=== PATIENT | female | born 1940 | race Caucasian/White ===

== ENCOUNTER 2017-10-26 19:55 | Inpatient (IN) | payer MEDICARE, OTHER ==
[2017-10-26] VITALS (86 sets, daily range): O2SAT 50–100
[~2017-10-26] VITALS: Ht 157.5 cm; Wt 98.8 kg
[~2017-10-26 19:55] MED LIST: ZYLOPRIM 300MG300 MG PO
[2017-10-26 21:24] LABS: BASO % 0.4 % (0.0-2.0); GRAN # 4.9 (1.4-6.5); GRAN % 70.4 % (42.2-75.2); HEMOGLOBIN 12.7 g/dl (12.5-16.0); LYMPH # 0.9 (1.2-3.4); LYMPH % 12.9 % (20.0-51.0); MEAN CELL VOLUME 91 fl (80.0-100.0); MEAN CORPUSCULAR HEMOGLOBIN 32 pg (27.0-31.0); MEAN CORPUSCULAR HGB CONC 35 g/dl (33.0-37.0); MEAN PLATELET VOLUME 10.5 fl (7.4-10.4); MONO # 1.1 (0.1-0.6); PLATELET COUNT 319 K/mm3 (130-400); RED BLOOD COUNT 4.03 M/mm3 (4.10-5.30); REDCELL DISTRIBUTION WIDTH-CV 15.9 % (11.5-14.5)
[2017-10-26 21:28] LABS: HEMATOCRIT 36.6 % (37.0-47.0); INR 1.1 (0.8-3.0); PROTHROMBIN TIME 12.4 SECONDS (9.7-12.8)
[2017-10-26 21:31] LABS: PARTIAL THROMBOPLASTIN TIME 32.9 SECONDS (26.0-37.0)
[2017-10-26 21:36] LABS: ALBUMIN 3.9 gm/dL (3.5-5.0); BILIRUBIN,TOTAL 0.6 mg/dL (0.0-1.0); CALCIUM 10.4 mg/dL (8.4-10.2); CHOLESTEROL RISK RATIO 2.2; CREATININE, serum 1.91 mg/dL (0.52-1.25); MAGNESIUM 2.6 mg/dL (1.6-2.3); POTASSIUM 4.2 mmol/L (3.4-5.0); TOTAL PROTEIN 7.7 gm/dL (6.4-8.2)
[2017-10-26 21:49] LABS: TROPONIN-I 0.339 ng/mL (0.000-0.034)
[2017-10-26] MEDS ORDERED: NORCO 325 MG-51 TAB PO (23:54)
[2017-10-26] MEDS ORDERED: ALBUTEROL0.83 MG/ML IH (23:55)
[2017-10-26] MEDS ORDERED: RT SPIRIVA18 MCG IH (23:56)
[2017-10-26] MEDS ORDERED: RT ADVAIR 228 DISKUS IH (23:56)
[2017-10-26] MEDS ORDERED: PRAVACHOL 20MG20 MG PO (23:57)
[2017-10-26] MEDS ORDERED: COLCRYS0.6 MG PO (23:58)
[2017-10-26] MEDS ORDERED: PROAIR HFA0.09 MG/AC IH (23:59)
[2017-10-27] VITALS (467 sets, daily range): BP systolic 110–143; BP diastolic 49–96; PULSE 68–86; TEMP 97.5–98.6; O2SAT 71–100
[2017-10-27] MEDS ORDERED: COZAAR100 MG PO (00:01)
[2017-10-27] MEDS ORDERED: LOPRESSOR 550 MG/TAB PO (00:01)
[2017-10-27] MEDS ORDERED: LASIX 40MG TABL40 MG PO (00:02)
[2017-10-27] MEDS ORDERED: PLAVIX 75MG TAB75 MG PO (00:03)
[2017-10-27] MEDS ORDERED: XALATAN EYE DROPS OD (00:06)
[2017-10-27] MEDS ORDERED: TYLENOL 500MG500 MG PO (00:07)
[2017-10-27] MEDS ORDERED: MASON NATURAL2000 IU PO ×2 (00:09→00:10)
[2017-10-27] MEDS ORDERED: MAGNESIUM500 MG PO (00:10)
[2017-10-27] MEDS ORDERED: ASPIRIN 81M81 MG/TA2 PO (00:11)
[2017-10-27 06:12] LABS: BASO % 0.3 % (0.0-2.0); GRAN # 3.8 (1.4-6.5); GRAN % 66.1 % (42.2-75.2); HEMOGLOBIN 11.7 g/dl (12.5-16.0); LYMPH # 0.9 (1.2-3.4); LYMPH % 15.6 % (20.0-51.0); MEAN CELL VOLUME 90 fl (80.0-100.0); MEAN CORPUSCULAR HEMOGLOBIN 31 pg (27.0-31.0); MEAN CORPUSCULAR HGB CONC 35 g/dl (33.0-37.0); MEAN PLATELET VOLUME 10.3 fl (7.4-10.4); MONO % 17.8 % (1.7-9.3); PLATELET COUNT 313 K/mm3 (130-400); RED BLOOD COUNT 3.73 M/mm3 (4.10-5.30); REDCELL DISTRIBUTION WIDTH-CV 15.6 % (11.5-14.5)
[2017-10-27 06:14] LABS: HEMATOCRIT 33.4 % (37.0-47.0)
[2017-10-27 06:29] LABS: CALCIUM 10.2 mg/dL (8.4-10.2); CREATININE, serum 1.66 mg/dL (0.52-1.25); POTASSIUM 4.3 mmol/L (3.4-5.0)
[2017-10-27 06:43] LABS: TROPONIN-I 0.282 ng/mL (0.000-0.034)
[2017-10-28 04:48] VITALS: BP 124/77; PULSE 71; TEMP 98.9
[2017-10-28 06:46] LABS: HEMOGLOBIN 12.6 g/dl (12.5-16.0); MEAN CELL VOLUME 92 fl (80.0-100.0); MEAN CORPUSCULAR HEMOGLOBIN 32 pg (27.0-31.0); MEAN CORPUSCULAR HGB CONC 34 g/dl (33.0-37.0); MEAN PLATELET VOLUME 10.1 fl (7.4-10.4); PLATELET COUNT 364 K/mm3 (130-400); REDCELL DISTRIBUTION WIDTH-CV 15.7 % (11.5-14.5)
[2017-10-28 07:02] LABS: HEMATOCRIT 36.6 % (37.0-47.0)
[2017-10-28 07:03] LABS: ALBUMIN 3.6 gm/dL (3.5-5.0); BILIRUBIN,TOTAL 0.8 mg/dL (0.0-1.0); CALCIUM 10.3 mg/dL (8.4-10.2); CREATININE, serum 1.62 mg/dL (0.52-1.25); POTASSIUM 4.6 mmol/L (3.4-5.0)
[2017-10-28 09:11] LABS: BAND 1 % (0-10); BASOPHIL 1 % (0-2); LYMPHOCYTE 30 % (20.0-51.0); NEUTROPHILS 65 % (42.0-75.2)
[2017-10-28 09:12] LABS: ANISOCYTOSIS 1+; OVALOCYTES 1+; PLATELET ESTIMATE INCREASED (NORMAL); TARGET CELLS 2+
[2017-10-28 09:44] VITALS: BP 144/65; PULSE 65; TEMP 97.9
[2017-10-28 11:35] VITALS: BP 122/53; PULSE 75; TEMP 98.7
[2017-10-28 12:26] VITALS: BP 122/53; PULSE 75
[2017-10-28 16:58] VITALS: BP 137/36; PULSE 95; TEMP 98.2
[2017-10-28 20:17] VITALS: BP 128/64; PULSE 62; TEMP 98.4
[2017-10-29 01:17] VITALS: BP 98/79; PULSE 89; TEMP 97.4
[2017-10-29 03:41] VITALS: BP 148/52; PULSE 84; TEMP 97.4
[2017-10-29 07:52] VITALS: BP 127/55; PULSE 81; TEMP 98
[2017-10-29 09:13] VITALS: BP 131/54; PULSE 80
[2017-10-29 09:15] VITALS: BP 154/49; PULSE 79
[2017-10-29] MEDS ORDERED: COZAAR 50MG50 MG/TAB PO (11:07)
[2017-10-29] MEDS ORDERED: NITROSTAT0.4 MG/TAB SL (11:08)
[2017-10-29 12:02] VITALS: BP 108/58; PULSE 83; TEMP 98.4
[2017-10-29 12:29] LABS: BASO % 0.5 % (0.0-2.0); GRAN # 3.2 (1.4-6.5); GRAN % 56.5 % (42.2-75.2); HEMATOCRIT 41.5 % (37.0-47.0); HEMOGLOBIN 14.4 g/dl (12.5-16.0); LYMPH # 1.2 (1.2-3.4); LYMPH % 21.1 % (20.0-51.0); MEAN CELL VOLUME 89 fl (80.0-100.0); MEAN CORPUSCULAR HEMOGLOBIN 31 pg (27.0-31.0); MEAN CORPUSCULAR HGB CONC 35 g/dl (33.0-37.0); MEAN PLATELET VOLUME 10.1 fl (7.4-10.4); MONO # 1.2 (0.1-0.6); MONO % 21.5 % (1.7-9.3); PLATELET COUNT 432 K/mm3 (130-400); RED BLOOD COUNT 4.64 M/mm3 (4.10-5.30); REDCELL DISTRIBUTION WIDTH-CV 15.9 % (11.5-14.5)
[2017-10-29 12:37] LABS: CALCIUM 11.2 mg/dL (8.4-10.2); CREATININE, serum 1.51 mg/dL (0.52-1.25)
[2017-10-29] MEDS ORDERED: TESSALON P100 MG/CAP PO (13:52)
== END 2017-10-29 18:12 | disposition home health service (06) | DRG 280 ==
LOC: IMCU 19:55 → ICU 20:44 → MEDICAL 10-27 17:33 → ICU 10-27 17:34 → MEDICAL 10-27 19:38
PROVIDERS: Family Medicine; Nurse Practitioner Family; Physician Assistant
DX: I13.0 Hypertensive heart and chronic kidney disease with heart failure and stage 1 through stage 4 chronic kidney disease, or unspecified chronic kidney disease (principal); I50.33 Acute on chronic diastolic (congestive) heart failure; I21.4 Non-ST elevation (NSTEMI) myocardial infarction; Z68.41 Body mass index [BMI] 40.0-44.9, adult; N18.9 Chronic kidney disease, unspecified; J44.9 Chronic obstructive pulmonary disease, unspecified; E66.9 Obesity, unspecified; I27.22 Pulmonary hypertension due to left heart disease; I87.2 Venous insufficiency (chronic) (peripheral); Z87.891 Personal history of nicotine dependence; I08.3 Combined rheumatic disorders of mitral, aortic and tricuspid valves; E83.52 Hypercalcemia
CPT/HCPCS: 99231-AI; 99239; A9502; G0378; G0379; J1650; J2785

== ENCOUNTER 2017-12-10 09:06 | Day surgery (SDC) | payer MEDICARE, OTHER ==
[~2017-12-10] VITALS: Ht 157.5 cm; Wt 95.2 kg
[2017-12-10] VITALS (10 sets, daily range): BP systolic 132–187; BP diastolic 68–85; PULSE 69–80; TEMP 97.6–97.9
[~2017-12-10 09:06] MED LIST changes: +ALBUTEROL0.83 MG/ML IH; +ASPIRIN 81M81 MG/TA2 PO; +COLCRYS0.6 MG PO; +COZAAR 50MG50 MG/TAB PO; +COZAAR100 MG PO; +LASIX 40MG TABL40 MG PO; +LOPRESSOR 550 MG/TAB PO; +MAGNESIUM500 MG PO; +MASON NATURAL2000 IU PO; +NITROSTAT0.4 MG/TAB SL; +NORCO 325 MG-51 TAB PO; +PLAVIX 75MG TAB75 MG PO; +PRAVACHOL 20MG20 MG PO; +PROAIR HFA0.09 MG/AC IH; +RT ADVAIR 228 DISKUS IH; +RT SPIRIVA18 MCG IH; +TESSALON P100 MG/CAP PO; +TYLENOL 500MG500 MG PO; +XALATAN EYE DROPS OD
[2017-12-10 09:38] LABS: HEMATOCRIT 41.7 % (37.0-47.0); HEMOGLOBIN 14.3 g/dl (12.5-16.0); MEAN CELL VOLUME 90 fl (80.0-100.0); MEAN CORPUSCULAR HEMOGLOBIN 31 pg (27.0-31.0); MEAN CORPUSCULAR HGB CONC 34 g/dl (33.0-37.0); MEAN PLATELET VOLUME 9.9 fl (7.4-10.4); PLATELET COUNT 287 K/mm3 (130-400); RED BLOOD COUNT 4.62 M/mm3 (4.10-5.30); REDCELL DISTRIBUTION WIDTH-CV 18.3 % (11.5-14.5)
[2017-12-10 09:42] LABS: PROTHROMBIN TIME 11.1 SECONDS (9.7-12.8)
[2017-12-10 09:47] LABS: CALCIUM 10.4 mg/dL (8.4-10.2); CREATININE, serum 0.87 mg/dL (0.52-1.25); POTASSIUM 4.1 mmol/L (3.4-5.0)
[2017-12-10] MEDS ORDERED: MUCINEX DM 30 M1 TE1 (11:40)
[2017-12-10] MEDS ORDERED: TESSALON P100 MG/CAP PO (12:00)
== END 2017-12-10 15:30 | disposition home or self-care (01) ==
LOC: COL.CAR 09:06
PROVIDERS: Internal Medicine Interventional Cardiology
DX: I21.4 Non-ST elevation (NSTEMI) myocardial infarction (principal); I11.0 Hypertensive heart disease with heart failure; I50.32 Chronic diastolic (congestive) heart failure; I27.20 Pulmonary hypertension, unspecified; R60.0 Localized edema; E78.5 Hyperlipidemia, unspecified; J44.9 Chronic obstructive pulmonary disease, unspecified; I73.9 Peripheral vascular disease, unspecified; Z79.02 Long term (current) use of antithrombotics/antiplatelets; Z79.82 Long term (current) use of aspirin
CPT/HCPCS: J2250; J3010; Q9967

== ENCOUNTER 2019-12-20 16:01 | Observation (INO) | payer MEDICARE, OTHER ==
[~2019-12-20] VITALS: Ht 152.4 cm; Wt 95.7 kg
[~2019-12-20 16:01] MED LIST changes: +MUCINEX DM 30 M1 TE1
--- NOTE | 2019-12-20 18:22 | NUR ---
PT ARRIVED TO ROOM, SETTLED IN, PT ALERT AND ORIENTED, MENTIONED TAKING MEDS CRUSHED IN APPLESAUCE. PT PLEASANT
--- NOTE | 2019-12-20 19:18 | NUR ---
WHEN I TOOK OVER ON THIS PATIENT, THE MEDICATION RECONCILLE WAS ALREADY COMPLETED. WILL GO OVER MEDICATIONS WITH THE PATIENT. THE PATIENT DOES NOT HAVE IV ACCESS.
[2019-12-20 19:24] LABS: BASO # 0.1 (0.0-0.2); BASO % 0.8 % (0.0-2.0); EOS # 0.1 (0.0-0.7); EOS % 0.8 % (0-4.0); GRAN # 2.7 (1.4-6.5); GRAN % 44.5 % (42.2-75.2); HEMATOCRIT 44.2 % (37.0-47.0); HEMOGLOBIN 15.3 g/dl (12.5-16.0); LYMPH # 2.5 (1.2-3.4); LYMPH % 39.8 % (20.0-51.0); MEAN CELL VOLUME 101 fl (80.0-100.0); MEAN CORPUSCULAR HEMOGLOBIN 35 pg (27.0-31.0); MEAN CORPUSCULAR HGB CONC 35 g/dl (33.0-37.0); MEAN PLATELET VOLUME 9.7 fl (7.4-10.4); MONO # 0.9 (0.1-0.6); MONO % 13.8 % (1.7-9.3); PLATELET COUNT 228 K/mm3 (130-400); REDCELL DISTRIBUTION WIDTH-CV 15.4 % (11.5-14.5)
[2019-12-20 19:45] LABS: TROPONIN-I 0.022 ng/mL (0.000-0.035)
[2019-12-20 19:48] VITALS: BP 137/58; PULSE 82; TEMP 97.7
--- NOTE | 2019-12-20 22:23 | NUR ---
NUCLEAR EQUIPMENT DESIGN ENGINEER MICKIE JOHN WAS ABLE TO GET A LEFT HAND IV.
[2019-12-20 23:42] VITALS: BP 144/68; PULSE 101; TEMP 97.9
[2019-12-21 03:35] VITALS: BP 128/63; PULSE 95; TEMP 98.7
--- NOTE | 2019-12-21 04:53 | NUR ---
PATIENT WAS ASKED ABOUT HER HOME MEDICAITONS AND THE LAST TIME THEY WERE TAKEN. PATIENT WAS ABLE TO TELL NURSE ABOUT HER HOME MEDICATIONS. PATIENT VERIFIED HER PHARMACY AND ALLERGIES THAT SHE DOES HAVE. PATIENT HAS CALLED WHEN SHE NEEDS TO USE THE RESTROOM. PATIENT STARTED TO VOID BEFORE SHE COULD SIT DOWN ON THE TOLIET. PATIENT WAS CLEANED UP AND HELPED BACK TO BED. PATIENT IS STEADY ON HER FEET WITH THE ASSISTANCE OF ONE AND CANE. PATIENT HAS REMAINED ALERT AND ORIENTATED. PATIENT DOES NEED HELP IN THE BED TO GET REPOSITIONED. PATIENT DOES HAVE SOME SWELLING NOTED TO HER LOWER EXTREMETIES. PATIENT HAS DENIED ANY OTHER NEEDS, WILL REPORT OFF TO DAY SHIFT
--- NOTE | 2019-12-21 07:30 | NUR ---
ASSESSMENT PERFORMED, MEDICATIONS GIVEN. PT HELPED TO BATHROOM. PT BEGAN TO URNINATE BEFORE REACHING TOILET. PT PLEASANT, AOX4. PT UNSTEADY ON FEET WITH WALKER. HAS TO GRAB ONTO SOMETHING ON BOTH SIDES. COULD BENEFIT FROM A WALKER, PT REPORTS HAVING ONE AT HOME. PT AMBULATED TO CHAIR. PT NPO FOR CT OF ABD.
[2019-12-21 08:12] VITALS: BP 144/55; PULSE 95; TEMP 98.4; TEMP 988.4
--- NOTE | 2019-12-21 09:56 | NUR ---
Initial visit; Patient thanked Rn Clinical Documentation for looking in on her and offering prayer and God's blessings this morning.
[2019-12-21 11:20] VITALS: BP 147/58; PULSE 78; TEMP 98.2
[2019-12-21 14:44] LABS: CREATININE, serum 1.05 (0.52-1.25)
--- NOTE | 2019-12-21 16:40 | NUR ---
Radio Frequency Engineer met with the patient to complete initial intake. The patient lives in [place] with two daughters, Tabitha and Patrica. The patient uses a cane and also has walker. The patient uses 2L of oxygen at night. The patient's PCP is Dr. Stiles and receives medications from [facility]. She may use [facility] or [facility] in [place] if needed. The patient has advanced directives in the EMR. The patient plans to return home at discharge with one of her daughters providing transportation. There are no additional needs at this time.
--- NOTE | 2019-12-21 17:12 | NUR ---
PT HAD CT PERFORMED. DIET PUT IN. PT PLEASANT, AOX4. UNEVENTFUL SHIFT. DENIES PAIN OR DISCOMFORT.
[2019-12-21 17:47] VITALS: BP 119/68; PULSE 110; TEMP 98.1
[2019-12-21 19:02] VITALS: BP 122/81; PULSE 119; TEMP 97.9
[2019-12-21 23:07] VITALS: BP 119/73; PULSE 96; TEMP 97.8
[2019-12-22 04:00] VITALS: BP 115/71; PULSE 99; TEMP 97.7
--- NOTE | 2019-12-22 05:40 | NUR ---
patient has had a peaceful night with no issues. she wears her 2 L of oxygen while she sleeps. patient calls for assistance when she needs to use the restroom. according to the [facility] note she is planning to discharge home today. will continue to monitor. will report off to day shift.
[2019-12-22 07:39] VITALS: BP 132/52; PULSE 88; TEMP 97.3
--- NOTE | 2019-12-22 08:17 | NUR ---
Pt assessment complete. Pt is sitting up in the chair with her eyes closed. She arouses to voice. Denies pain at this time. Denies SOA at rest and exertion. Pt wheezing this AM, reports she usually has a nebulizer that allows her to cough and assists with wheezing. Does not feel she needs one at this time. Pt has no N/V. States she did not sleep well and is hoping to go home today. No further needs at this time.
--- NOTE | 2019-12-22 10:53 | NUR ---
Spotter Driver and Laney CORADO CM met with the patient to present the [facility] forms. The patient understood and gave verbal consent to sign the forms on her behalf. A copy was provided and original was placed in the chart.
[2019-12-22 11:31] VITALS: BP 127/64; PULSE 73; TEMP 98.2
[2019-12-22 16:35] VITALS: BP 148/59; PULSE 106; TEMP 97.8
--- NOTE | 2019-12-22 18:14 | NUR ---
Discharge paperwork and instructions reviewed with patient. All questions answered at this time. IV to [facility] f[facility]. Catheter tip intact. Pt awaiting ride at this time.
== END 2019-12-22 18:30 | disposition home or self-care (01) ==
LOC: MEDICAL 16:01
PROVIDERS: ADMIT Internal Medicine Interventional Cardiology
DX: I11.0 Hypertensive heart disease with heart failure (principal); I50.32 Chronic diastolic (congestive) heart failure; I27.20 Pulmonary hypertension, unspecified; I47.2 Ventricular tachycardia; J44.9 Chronic obstructive pulmonary disease, unspecified; E78.5 Hyperlipidemia, unspecified; K76.89 Other specified diseases of liver; I73.9 Peripheral vascular disease, unspecified; I07.1 Rheumatic tricuspid insufficiency; Z79.899 Other long term (current) drug therapy
CPT/HCPCS: G0378; J1940; Q9967